=== PATIENT | male | born 1965 | race Caucasian/White ===

== ENCOUNTER 2018-12-24 17:37 | Emergency (ER) | payer OTHER ==
[~2018-12-24] VITALS: Ht 152.4 cm; Wt 86.2 kg
== END 2018-12-24 21:22 | disposition home or self-care (01) ==
LOC: ER 17:37
DX: S60.412A Abrasion of right middle finger, initial encounter (principal); W55.03XA Scratched by cat, initial encounter; Y93.89 Activity, other specified; Y92.89 Other specified places as the place of occurrence of the external cause; Y99.8 Other external cause status

== ENCOUNTER 2022-06-14 10:19 | Emergency (ER) | payer OTHER ==
[~2022-06-14] VITALS: Ht 175.3 cm; Wt 85.3 kg
[2022-06-14] MEDS ORDERED: CRESTOR10 MG PO (10:28)
[2022-06-14] MEDS ORDERED: CHILDREN'S ASPI81 MG PO (10:28)
== END 2022-06-14 13:22 | disposition home or self-care (01) ==
LOC: ER 10:19
DX: R13.10 Dysphagia, unspecified (principal); T18.108A Unspecified foreign body in esophagus causing other injury, initial encounter